=== PATIENT | female | born 1965 | race Caucasian/White ===

== ENCOUNTER → 2018-08-18 | Outpatient (CLI) | payer OTHER ==
--- NOTE | 2018-08-18 13:18 | RADIOLOGY REPORT (SQ) ---
EXAM DESCRIPTION: CHEST PA/LATERAL COMPLETED DATE/TIME: 08/18/2018 12:04 pm REASON FOR STUDY: ACUTE BRONCHITIS DUE TO OTHER SPECIFIED ORGANISMS COMPARISON: None. EXAM PARAMETERS: NUMBER OF VIEWS: two views TECHNIQUE: Digital Frontal and Lateral radiographic views of the chest acquired. RADIATION DOSE: NA LIMITATIONS: none FINDINGS: LUNGS AND PLEURA: Nodular density overlying right 6th posterior rib. Similar nodular dens ity more inferiorly is probably a nipple shadow. Left apical bronchiectasis and pleural thickening. MEDIASTINUM AND HILAR STRUCTURES: No masses or contour abnormalities. HEART AND VASCULAR STRUCTURES: Heart normal size. No evidence for failure. BONES: No acute findings. HARDWARE: Left axillary clips. OTHER: No other significant finding. IMPRESSION: Left apical bronchiectasis and equivocal right lung nodule. Consider follow-up noncontr ast chest CT. TECHNICAL DOCUMENTATION: JOB ID: [id number] [employer]- All Rights Reserved Reading location - IP/workstation name: [email or web address]
== END ==
LOC: OD 11:54
PROVIDERS: ATTEND Nurse Practitioner Family
DX: J20.8 Acute bronchitis due to other specified organisms (principal)
CPT/HCPCS: 71046

== ENCOUNTER → 2018-09-07 | Outpatient (CLI) | payer OTHER ==
--- NOTE | 2018-09-07 15:31 | RADIOLOGY REPORT (SQ) ---
EXAM DESCRIPTION: CT CHEST WITHOUT COMPLETED DATE/TIME: 09/07/2018 3:14 pm REASON FOR STUDY: R91.1 SOLITARY PULMONARY NODULE R91.1 SOLITARY PULMONARY NODULE COMPARISON: None. TECHNIQUE: CT scan performed of the chest without intravenous contrast. Images reviewed with lung, soft tissue and bone windows. Reconstructed coronal and sagittal MPR images reviewed. All images st ored on PACS. All CT scanners at this facility use dose modulation, iterative reconstruction, and/or weight based d osing when appropriate to reduce radiation dose to as low as reasonably achievable (ALARA). [facility]: Dose Right [facility]: CareDose [facility]: Dose Right [facility]: Teradose 4D [facility]: Smart [employer] Math RADIATION DOSE: CT Rad equipment meets quality standard of care and radiation dose reduction techniq ues were employed. CTDIvol: 3.5 mGy. DLP: 133 mGy-cm. mGy. LIMITATIONS: No technical limitations. FINDINGS: LUNGS AND PLEURA: Segmental bronchiectasis in the left apex, presumably from prior radiati on. No pulmonary nodule is identified. No effusions. HILAR AND MEDIASTINAL STRUCTURES: No adenopathy. HEART AND VASCULAR STRUCTURES: No aneurysm. No pericardial effusion. UPPER ABDOMEN: No significant findings. Limited exam. THYROID AND OTHER SOFT TISSUES: Left breast implant. BONES: No acute findings. HARDWARE: None in the chest. OTHER: No other significant findings. IMPRESSION: Left apical bronchiectasis. No evidence of pulmonary nodule. TECHNICAL DOCUMENTATION: JOB ID: [id number] Quality ID # [id number]: Final reports with documentation of one or more dose reduction techniques (e.g., Au tomated exposure control, adjustment of the mA and/or kV according to patient size, use of iterative reconstruction technique) 2010 [employer]- All Rights Reserved Reading location - IP/workstation name: [email or web address]
== END ==
LOC: RAD 17:10
PROVIDERS: ATTEND Family Medicine Geriatric Medicine
DX: J47.9 Bronchiectasis, uncomplicated (principal); R91.1 Solitary pulmonary nodule
CPT/HCPCS: 71250

== ENCOUNTER 2018-10-11 18:38 | Emergency (ER) | payer OTHER ==
[2018-10-11] MEDS ORDERED: LIDOCAINE 1%/EPINEPHRINE INJ 20 ML VIAL INJ ONE (20:14)
[2018-10-11] MEDS ORDERED: LIDOCAINE 1% INJ-PF (10 MG/ML) 30 ML SDV INJ ONE (20:15)
[2018-10-11] MEDS ORDERED: DIPH/PERTUSS(ACELL)/TETANUS VAC/PF 0.5 ML SYR (>=10YO) IM ONE (20:19)
--- NOTE | 2018-10-11 20:20 | ER Document Report ---
ED Fall - General Chief Complaint: Fall Injury Stated Complaint: FALL/FACE INJURY Time Seen by Provider: 10/11/18 20:02 Notes: Patient is a 53 year old female that comes to the emergency department for chief complaint of fall, she states she fell from standing by stepping on uneven pavement and falling forward, she hit her face on the ground, she had swelling to the face on the right side, swelling to the nose, bleeding from the nose, and bleeding from her top lip. She denies being knocked out, vomiting, she is not on a blood thinner. She also scraped her knees, however she denies any pain, she denies difficulty walking, visual changes, focal numbness or weakness. She is not up-to-date on her tetanus within 5 years. TRAVEL OUTSIDE OF THE [place] IN LAST 30 DAYS: No - Related data Allergies/Adverse Reactions: Penicillins Allergy (Verified 10/11/18 18:42) Past Medical History - General Information source: Patient - Social History Smoking Status: Never Smoker Frequency of alcohol use: None Drug Abuse: None Lives with: Family Family History: Reviewed & Not Pertinent Patient has suicidal ideation: No Patient has homicidal ideation: No Renal/ Medical History: Denies: Hx Peritoneal Dialysis - Immunizations Immunizations up to date: No Hx Diphtheria, Pertussis, Tetanus Vaccination: Yes Review of Systems - Review of Systems Constitutional: No symptoms reported EENT: See HPI Cardiovascular: No symptoms reported Respiratory: No symptoms reported Gastrointestinal: No symptoms reported Genitourinary: No symptoms reported Female Genitourinary: No symptoms reported Musculoskeletal: See HPI Skin: See HPI Hematologic/Lymphatic: No symptoms reported Neurological/Psychological: No symptoms reported Physical Exam - Vital signs Vitals: Temp Pulse Resp BP Pulse Ox 97.8 F 97 16 121/82 95 10/11/18 19:06 10/11/18 19:06 10/11/18 19:06 10/11/18 19:06 10/11/18 19:06 - Notes Notes: GENERAL: Alert, interacts well. No acute distress. HEAD: Normocephalic. Ecchymosis over the right zygomatic area, over the nasal bridge with some swelling, there is an open laceration over the middle upper nasal bridge, there is a laceration over the upper lip and a skin avulsion over the left upper lip. EYES: Pupils equal, round, and reactive to light. Extraocular movements intact. ENT: Oral mucosa moist, tongue midline. Oropharynx unremarkable. Airway patent. Dried epistaxis in both nares, no septal hematoma, no current epistaxis. TM's intact. Inner upper lip with a laceration that extends through to the skin avulsion on the left side. No dental injuries noted, no oral injuries noted otherwise. NECK: Full range of motion. Supple. Trachea midline. LUNGS: Clear to auscultation bilaterally, no wheezes, rales, or rhonchi. No respiratory distress. HEART: Regular rate and rhythm. No murmur ABDOMEN: Soft, non-tender. Non-distended. Bowel sounds present in all 4 quadrants. GENITOURINARY: Deferred EXTREMITIES: Moves all 4 extremities spontaneously. No edema, normal radial and dorsalis pedis pulses bilaterally. No cyanosis. BACK: no cervical, thoracic, lumbar midline tenderness. No saddle anesthesia, normal distal neurovascular exam. NEUROLOGICAL: Alert and oriented x3. Normal speech. [cranial nerves II through XII grossly intact]. PSYCH: Normal affect, normal mood. SKIN: Warm, dry, normal turgor. No rashes or lesions noted. Course - Re-evaluation Re-evalutation: Initially CT criteria was discussed, however because of patient's obvious facial swelling, nasal swelling, nasal bleeding, and a fall from standing with a strike on the pavement decision was made to proceed with imaging. She is not on blood thinner, she does not have vomiting, nausea, severe headache, she did not pass out. CT showing nasal bone fractures, septal fracture. Patient does not have septal hematoma on exam. Laceration over the nasal bridge repaired, laceration over the right upper lip repaired, skin avulsion noted over the left upper lip, when looking underneath there is a hole which was sutured in the upper lip which did communicate with the left upper lip skin avulsion. Patient is allergic to penicillins, as a result she was placed on doxycycline for prophylaxis due to mouth wound/bite. I called and spoke with oral maxillofacial surgeon Dr. Riki Adkins, discussed injuries, he recommends follow-up with ENT because of septal fracture. Discussed with patient. Patient also will be referred to Dr. Bates because of the left upper lip injury for possible plastics involvement. Discussed prophylaxis with antibiotics, patient was given her tetanus, discussed head injury precautions, wound care, postconcussive syndrome , and return precautions in detail with patient and . Discussed with Dr. Villarreal. They state understanding and agreement. - Vital Signs Vital signs: Temp Pulse Resp BP Pulse Ox 97.8 F 97 16 121/82 95 10/11/18 19:06 10/11/18 19:06 10/11/18 19:06 10/11/18 19:06 10/11/18 19:06 Procedures - Laceration/Wound Repair nose Wound length (cm): 1.5 Wound's Depth, Shape: Irregular Laceration pre-procedure: Sterile PPE donned, Sterile drapes applied, Shur- Clens applied Anesthetic type: 1% Lidocaine Volume Anesthetic (mLs): 2 Wound explored: Clean, No foreign body removed Wound Repaired With: Sutures Suture Size/Type: 6:0, Nylon Layer Closure?: No Post-procedure NV exam normal: Yes Complications: No right upper lip Wound length (cm): 1 Wound's Depth, Shape: Irregular, Flap Laceration pre-procedure: Sterile PPE donned, Sterile drapes applied, Shur- Clens applied Anesthetic type: 1% Lidocaine Volume Anesthetic (mLs): 2 Wound explored: Clean, No foreign body removed Irrigated w/ Saline (mLs): 40 Wound Repaired With: Sutures Suture Size/Type: 6:0, Nylon Number of Sutures: 4 Layer Closure?: No Post-procedure NV exam normal: Yes Complications: No upper inner lip Wound length (cm): 0.5 Wound's Depth, Shape: Linear Laceration pre-procedure: Sterile PPE donned, Sterile drapes applied, Shur- Clens applied Anesthetic type: 1% Lidocaine Volume Anesthetic (mLs): 1 Wound explored: Clean, No foreign body removed Wound Repaired With: Sutures Suture Size/Type: 5:0, Vicryl Post-procedure NV exam normal: Yes Complications: No Discharge - Discharge Clinical Impression: Fall Qualifiers: Encounter type: initial encounter Qualified Code(s): W19.XXXA - Unspecified fall, initial encounter Facial laceration Qualifiers: Encounter type: initial encounter Qualified Code(s): S01.81XA - Laceration without foreign body of other part of head, initial encounter Facial contusion Qualifiers: Encounter type: initial encounter Qualified Code(s): S00.83XA - Contusion of other part of head, initial encounter Nasal bone fracture Qualifiers: Encounter type: initial encounter Fracture type: open Qualified Code(s): S02.2XXB - Fracture of nasal bones, initial encounter for open fracture Nasal septum fracture Qualifiers: Encounter type: initial encounter Fracture type: open Qualified Code(s): S02.2XXB - Fracture of nasal bones, initial encounter for open fracture Additional Instructions: Your imaging shows fracture of the nasal bone and nasal septum. Do not blow your nose. Follow-up with the ENT referral Dr. Amador for management, call tomorrow to make your follow-up appointment. Take Tylenol or ibuprofen for pain. The sutures can be removed in 5-7 days. Keep clean, clean with soap and water, dab dry, avoid soaking. Because of the avulsed area over the left upper lip and the questionable damaged tissue over the right upper lip I recommend evaluation by plastics, call Dr. Bates for close follow-up as listed. You may experience postconcussive headaches. Please follow head injury precautions listed below. Return for any concerning symptoms. Fracture of the Nose You have a fractured nose. The examination shows no evidence that the nose needs to be "set" or operated on. However, the physician must recheck the nose once the swelling has decreased. The final decision about straightening of the bones or surgery can be made once the swelling resolves. This usually takes three to five days. Rest in a reclining chair. Cold pack the nose for the next 24 to 36 hours. Do not blow the nose. This may increase the swelling or cause further bleeding. If you have painful swelling inside the nose or exquisite tenderness when the tip of the nose is touched, you should call the doctor at once or return for re-evaluation. You should also contact the doctor if you develop fever, purulent nasal drainage, increasing pain in the face, or problems with vision. Post-Concussion Syndrome Post-concussion syndrome often follows a mild head injury. Dizziness, mild nausea, mild headache, trouble concentrating, and a general sense of "not being right" may persist for a week or two. This is a frequent complication of concussion. However, if the symptoms worsen, or new symptoms develop, you should be re-examined by the physician. There is no specific cure for post-concussion syndrome. You can take mild pain medication such as ibuprofen or acetaminophen. While you should not drive if you are dizzy, you can get back to your regular activities as quickly as the symptoms will allow. And while vigorous exercise may worsen the headache, mild physical activity often is helpful. Sitting and thinking about your symptoms will worsen them. If difficulties continue, you may need referral for special therapy to help you regain full mental function. Call the physician if you are worsening, or if symptoms are still present in one week. Report any new symptoms immediately. Head Injury Precautions At this point, there is no evidence that your head injury is serious. Observation is necessary, however. Take only clear liquids for the first few hours, unless told otherwise by the doctor. If no pain medication was prescribed, you may take acetaminophen according to the directions on the bottle. Do not take any medication that may alter your level of alertness (unless you've discussed it with the doctor first) . Limit activity for the first 24 hours. Bed rest is best. During the first 24 hours, check to see approximately every two to three hours that the patient is easily arousable, responds normally, and can perform common tasks such as walking without difficulty. Contact your doctor or go to the hospital if any of the following things occur: Persistent vomiting, difficulty in arousing the patient, worsening or continued headache, or failure to improve as expected. Head injuries can cause symptoms that persist for a few days or even a few weeks. Prescriptions: Doxycycline Hyclate 100 mg PO BID #10 capsule Referrals: VANITA AMADOR DO [ASSOCIATE] - Follow up tomorrow JAZZ BATES MD [ACTIVE STAFF] - Follow up tomorrow
--- NOTE | 2018-10-11 22:07 | RADIOLOGY REPORT (SQ) ---
EXAM DESCRIPTION: CT HEAD WITHOUT IV CONTRAST COMPLETED DATE/TME: 10/11/2018 20:12 CLINICAL HISTORY: 53 years Female fall, facial injury, facial swelling COMPARISON: None. TECHNIQUE: Contiguous axial CT images obtained through the brain without IV contrast. This exam was performed according to our department optimization program which includes automated exposure control, adjustment of the mA and/or kv according to patient size and/or use of iterative reconstruction technique. FINDINGS: The ventricles and sulci are within normal limits for the patient's age. No midline shift or mass effect. No masses identified. No acute intracranial hemorrhage. No fluid or significant mucosal thickening in the visualized paranasal sinuses. No depressed calvarial fractures. Fracture of the nasal bones and nasal septum. IMPRESSION: Acute fracture of the nasal bones and nasal septum No acute intracranial abnormality is identified.
--- NOTE | 2018-10-11 22:09 | RADIOLOGY REPORT (SQ) ---
EXAM DESCRIPTION: CT MAXILLOFACIAL WITHOUT IV CONTRAST COMPLETED DATE/TME: 10/11/2018 20:12 CLINICAL HISTORY: 53 years Female fall, facial injury, facial swelling COMPARISON: None. TECHNIQUE: Contiguous axial images obtained through the maxillofacial region without IV contrast. Reformatted images obtained. This exam was performed according to our department optimization program which includes automated exposure control, adjustment of the mA and/or kv according to patient size and/or use of iterative reconstruction technique. FINDINGS: The post septal orbits appear unremarkable. No fluid or significant mucosal thickening in the visualized paranasal sinuses. Comminuted fracture of the nasal bones with associated soft tissue swelling and subcutaneous emphysema. Fracture of the nasal septum. Orbits appear intact. IMPRESSION: Fracture of the nasal bones and nasal septum
[2018-10-11] MEDS ORDERED: DOXYCYCLINE HYCLATE 100 MG TABLET PO ONE (22:32)
[2018-10-12 02:35] VITALS: BP 118/74
== END 2018-10-11 22:55 | disposition home or self-care (01) ==
LOC: ER 18:38
DX: S02.2XXB Fracture of nasal bones, initial encounter for open fracture (principal); W18.39XA Other fall on same level, initial encounter; Z88.0 Allergy status to penicillin; Z23 Encounter for immunization
CPT/HCPCS: 99284; 90471; 70450; 70486; 90715; 12013; J3490

== ENCOUNTER 2020-09-28 07:49 | Day surgery (SDC) | payer OTHER ==
[~2020-09-28 07:49] MED LIST: PROPOFOL INJ 200 MG/20 ML VIAL IV ONE
[2020-09-28 09:42] VITALS: BP 129/72
--- NOTE | 2020-09-28 09:51 | Operative Report ---
Operative Report DATE OF SURGERY: 09/28/20 Operative Report: The risk, benefits and alternatives of the procedure including the risk of bleeding, perforation requiring surgery have been explained to the patient in detail and informed consent has been obtained. Patient is taken back to the endoscopy suite and placed in left, lateral decubital position. Timeout was called. Propofol medication is administered. Rectal examination is done which did not reveal any masses, tears or fissures. An Olympus videoscope was inserted into the patient's rectum. Scope was then carefully advanced all the way to the cecum. Cecum was identified by the usual anatomical landmarks including the ileocecal valve as well as the appendiceal office. Photodocumentation is obtained. Scope was then sequentially pulled back via the various segments of the colon including the ascending colon, hepatic flexure, transverse colon, splenic flexure, descending colon and finally into the rectosigmoid portions of the colon. Retroflexion maneuvers performed. Prep was good. PREOPERATIVE DIAGNOSIS: Positive Cologuard POSTOPERATIVE DIAGNOSIS: Small sessile rectal polyp status post biopsy. Internal hemorrhoids OPERATION: Colonoscopy with biopsy SURGEON: MICHAEL BERNARD ANESTHESIA: LMAC TISSUE REMOVED OR ALTERED: As noted above. COMPLICATIONS: None. ESTIMATED BLOOD LOSS: None. INTRAOPERATIVE FINDINGS: As noted above. PROCEDURE: Patient tolerated the procedure well. No immediate postprocedure complications are noted. Patient is discharged in good condition. Discharge date 09/28/2020. Discharge diet: Regular. Discharge activity: Regular. 2 to 3-week follow-up to discuss findings. Patient is instructed to call the office or proceed to the emergency room should there be any further problems or questions. 3 to 5-year surveillance depending on the pathology of the polyp
--- OUTSIDE RECORDS SUMMARY | 2020-10-01 08:55 | XMS REPORT ---
:1965 Author Organization [facility] Address [facility] [address] [place] [address] Care Team Providers Name Role Phone STEFANY Tyler Primary Care Physician Unavailable Jayson BRITT Attending Clinician Unavailable MD Jayson A Attending Clinician Unavailable Allergies, Adverse Reactions, Alerts Allergy Name Allergy Status Severity Reaction(s) Onset Inactive Treat ing Comments Type Date Date Clinician PENICILLINS Miscellaneo Active U hives 2017- us allergy 0-03 00:00: 00 Penicillins Allergy to Active substance penicillins Drug Active allergy Penicillins Penicillins Active Medications Ordered Filled Start Stop Current Ordering Indication Dosage Frequency Signature Comments Components Medication Medication Date Date Medication? Clinician (SIG) Name Name Colace 100 2019-0 Yes 100mg 100 mg = 1 mg oral 8-12 cap(s), capsule 14:36: PO, BID, 00 for constipati on, # 10 cap(s), 0 Refill(s), Pharmacy: [facility]. #5, 159, cm, 06/27/20 12:01:00 EDT, Height, 66.9, kg, 06/27/20 12:01:00 EDT, Weight [place] 5 2019-0 Yes 11 1 tab(s), mg-325 mg 8-12 PO, q4hr, oral tablet 14:36: for pain, 00 # 10 tab(s), 0 Refill(s), Pharmacy: [facility]. #5, 159, cm, 06/27/20 12:01:00 EDT, Height, 66.9, kg, 06/27/20 12:01:00 EDT, Weight [place] 2019-0 Yes 11 1 tab(s), 8-12 PO, Daily 11:02: 00 tamoxifen 2020-0 Yes 20mg 20 mg = 1 20 mg oral 8-12 tab(s), tablet 11:02: PO, Daily 00 atorvastati Yes 10mg 10 mg = 1 n 10 mg 8-12 tab(s), oral tablet 11:02: PO, Daily 00 aspirin 81 2019-0 Yes 81mg 81 mg = 1 mg oral 8-12 tab(s), delayed 11:02: PO, Daily release 00 tablet oxyCODONE-A No oxyCODONE- cetaminophe 7-27 Acetaminop n 5-325 MG 00:00: hen 5-325 Oral Tablet 00 MG Oral Tablet Quantity: 20 Refills: 0 Start : 0Active Tamsulosin No Tamsulosin HCl - 0.4 7-27 HCl - 0.4 MG Oral 00:00: MG Oral Capsule 00 Capsule Quantity: 7 Refills: 0 Start : 0Active Ondansetron No Ondansetro 4 MG Oral 06-11 n 4 MG Tablet 00:00: Oral Disintegrat 00 Tablet ing Disintegra ting Quantity: 15 Refills: 0 Start : 0Active Atorvastati Yes 0 Atorvastat n Calcium 4-29 in Calcium 10 MG Oral 00:00: 10 MG Oral Tablet 00 Tablet Quantity: 30 Refills: 0 ,,, Start : 0Active Tamoxifen 0 Yes 0 Tamoxifen Citrate 20 1-31 Citrate 20 MG Oral 00:00: MG Oral Tablet 00 Tablet Quantity: 30 Refills: 0 ,,, Start : 0Active Alive Yes 0 Alive Womens 50+ Womens 50+ Oral Tablet Oral Tablet Refills: 0 ,,, Active traZODone Yes 0 traZODone HCl - 50 MG HCl - 50 Oral Tablet MG Oral Tablet Refills: 0 ,,, Active azithromyci No azithromyc n 250 mg in 250 mg tablet tablet benzonatate No benzonatat 200 mg e 200 mg capsule capsule Celexa 20 No 1 Q1D Celexa 20 mg tablet mg tablet Take 1 Take 1 tablet tablet every day every day by oral by oral route. route. cephalexin No cephalexin 500 mg 500 mg capsule capsule Take 1 Take 1 capsule capsule every 12 every 12 hours by hours by oral route. oral route. diphenoxyla No diphenoxyl te-atropine ate-atropi 2.5 ne 2.5 mg-0.025 mg mg-0.025 tablet mg tablet Flucelvax No Flucelvax Quad Quad 60 mcg (15 60 mcg (15 mcg x mcg x 4)/0.5 mL 4)/0.5 mL IM IM suspension suspension ondansetron No ondansetro HCl 8 mg n HCl 8 mg tablet tablet polymyxin B No polymyxin sulfate B sulfate 10,000 10,000 unit-trimet unit-trime hoprim oprim 1 mg/mL eye mg/mL eye drops drops prednisone No prednisone 10 mg 10 mg tablet tablet prednisone No prednisone 20 mg 20 mg tablet tablet ProAir HFA No ProAir HFA 90 90 mcg/actuati mcg/actuat on aerosol ion inhaler aerosol inhaler promethazin No promethazi e 25 mg ne 25 mg rectal rectal suppository suppositor y tamoxifen No tamoxifen 20 mg 20 mg tablet tablet trazodone No trazodone 50 mg 50 mg tablet tablet Problems Condition Condition Condition Status Onset Resolution Last Treatin g Comments Name Details Category Date Date Treatment Clinician Date Personal Personal Problem Active history of History of 06-18 primary Primary 00:00: malignant Malignant 00 neoplasm of Neoplasm of breast Breast Estrogen Estrogen Problem Active receptor Receptor 8-03 positive Positive 00:00: tumor Tumor 00 Calculus of Calculus of Problem Active kidney kidney Complaint Complaint Problem Active of flank of flank pain pain Procedures Procedure Date / Time Performed Performing Clinician Armen ricci Basic Metabolic Panel(BMP) 2020-09-27 00:00:00 CBC 2020-09-27 00:00:00 L - MRSA Screening Culture 2020-09-27 00:00:00 PT/INR and PTT 2020-09-27 00:00:00 XR- KUB 1 View/ Abdomen 2020-09-27 00:00:00 US-Renal ULS Complete w/ Bladder 2020-09-18 00:00:00 Urinalysis 2020-09-17 00:00:00 US-Renal ULS Complete w/ Bladder 2020-07-06 00:00:00 Urinalysis 2020-07-03 00:00:00 XR- KUB 1 View/ Abdomen 2020-06-15 00:00:00 Basic Metabolic Panel(BMP) 2020-06-13 00:00:00 CBC 2020-06-13 00:00:00 L - MRSA Screening Culture 2020-06-13 00:00:00 Urine Culture 2020-06-13 00:00:00 Urinalysis 2020-06-13 00:00:00 Mastectomy with [place] Lymph Node 2017-11-24 00:00:00 Biopsy and Possible Axillary Dissection (Surg) History of Mastectomy Results Test Description Test Time Test Comments Text Results Atomic Results Result Comments Basic Metabolic Panel(BMP) 2020-09-27 09:06:00 Test Item Value Reference Range Comments Glucose (test code = Glucose) 90 mg/dL 74-106 Sodium (test code = Sodium) 143 mmol/L 135-145 Potassium (test code = Potassium) 4.2 mmol/L 3.5-5.3 Chloride (test code = Chloride) 109 mmol/L 98-107 CO2 (test code = CO2) 28 mmol/L 22-30 Creatinine, serum (test code = Creatinine, serum) 0.70 mg/dL 0.10-1.04 Glomerular Filtration Rate (test code = Glomerular Filtration >6 0 >60 Rate) Glomerular Filtration Rate AA (test code = Glomerular >60 >60 Filtration Rate AA) Blood Urea Nitrogen (test code = Blood Urea Nitrogen) 15 mg/dL 7-17 Calcium (test code = Calcium) 9.2 mg/dL 8.4-10.5 [id number] 09:05:00 Test Item Value Reference Range Comments White Blood Cell (test code = White Blood Cell) 4.7 K/uL 3.5-11.1 Red Blood Cell (test code = Red Blood Cell) 3.79 {M/uL} 3.69 -4.87 Hemoglobin (test code = Hemoglobin) 12.3 g/dL 11.4-14.4 Hematocrit (test code = Hematocrit) 35 % 33-41 Mean Corpuscular Volume (test code = Mean 92.6 fL 79.0-9 5.0 Corpuscular Volume) Mean Corpuscular Hemoglobin (test code = Mean 32.5 pg/mL 27 .0-33.0 Corpuscular Hemoglobin) Mean Corpuscular Hemoglobin Concentration (test 35.0 g/dL 33.5-35.5 code = Mean Corpuscular Hemoglobin Concentration) Red Cell Distribution Width (test code = Red 11.5 % 12. 0-15.0 Cell Distribution Width) Platelet (test code = Platelet) 208 K/uL 130-353 Mean Platelet Volume (test code = Mean Platelet 10.3 fL 7.5-10.7 Volume) Neutrophil Count, absolute (test code = 2.9 K/uL 1.9-7.2 Neutrophil Count, absolute) Neutrophil Count Percentage (test code = 62.5 % 43.0-72 .0 Neutrophil Count Percentage) Lymphocyte Count, absolute (test code = 1.2 K/uL 1.1-2.7 Lymphocyte Count, absolute) Lymphocyte Count Percentage (test code = 26.4 % 17.0-44 .0 Lymphocyte Count Percentage) Monocyte Count, absolute (test code = Monocyte 0.4 K/uL 0 .3-0.8 Count, absolute) Monocyte Count Percentage (test code = Monocyte 9.4 % 4.5-12.4 Count Percentage) Eosinophil Count, absolute (test code = 0.1 K/uL 0.0-0.5 Eosinophil Count, absolute) Eosinophil Count Percentage (test code = 1.5 % 0.7-7.8 Eosinophil Count Percentage) Basophil Count, absolute (test code = Basophil 0.0 K/uL 0 .0-0.1 Count, absolute) Basophil Count Percentage (test code = Basophil 0.2 % 0.2-1.1 Count Percentage) PT/INR and [id number] 09:05:00 Test Item Value Reference Range Comments Prothrombin Time (test code = Prothrombin 10.40 {seconds} 9.44-1 1.43 Time) Activated Partial Thromboplastin Time (test 23.70 {seconds} 24.5 0-29.98 code = Activated Partial Thromboplastin Time) INR (test code = INR) 1.1 [facility] 2019 CORONAVIRUS LUCY PANEL\S\2020-09-25 08:52:00 Test Item Value Reference Range Comments [facility] CORONAVIRUS 2019 LUCY SOURC (test code = See comment SOURCE3) [facility] 2019 NOVEL CORONAVIRUS LUCY (test code = Not Detected Not Detect [id number]) [id number] 08:07:00 Test Item Value Reference Range Comments Urine Color (test code = Urine Color) LT. YELLOW Yellow Urine Clarity (test code = Urine Clarity) CLEAR Clear Urine Glucose (test code = Urine Glucose) NEGATIVE Negati ve Urine Ketones (test code = Urine Ketones) NEGATIVE Negati ve Urine Bilirubin (test code = Urine Bilirubin) NEGATIVE Ne gative Urine Specific [place] (test code = Urine 1.025 1.010- 1.030 Specific [place]) Urine Blood (test code = Urine Blood) NEGATIVE Negative Urine pH (test code = Urine pH) 6.5 5.0-8.0 Urine Protein (test code = Urine Protein) NEGATIVE Negati ve Urine Urobilinogen (test code = Urine 0.2 Eu/dl 0.2 Urobilinogen) Urine Nitrites (test code = Urine Nitrites) NEGATIVE Nega tive Urine Leukocytes (test code = Urine Leukocytes) SMALL Negative URINE MICROSCOPIC= 0-2 EPIS, 3-5 WBC, OCC BACTERIA. [id number]- [id number] 1 View/ Abdomen 2020-09-10 12:51:00An image is avaliable in [employer], click link to view image [id number] 08:09:00 Test Item Value Reference Range Comments Urine Color (test code = Urine Color) LT. YELLOW Yellow Urine Clarity (test code = Urine Clarity) CLEAR Clear Urine Glucose (test code = Urine Glucose) NEGATIVE Negati ve Urine Ketones (test code = Urine Ketones) NEGATIVE Negati ve Urine Bilirubin (test code = Urine NEGATIVE Negative Bilirubin) Urine Specific [place] (test code = Urine 1.024 1.010- 1.030 Refractometer Specific [place]) Urine Blood (test code = Urine Blood) LARGE Negative Urine pH (test code = Urine pH) 5.0 5.0-8.0 Urine Protein (test code = Urine Protein) 100 mg/dL Negati ve Urine Urobilinogen (test code = Urine 0.2 Eu/dl 0.2 Urobilinogen) Urine Nitrites (test code = Urine Nitrites) NEGATIVE Nega tive Urine Leukocytes (test code = Urine SMALL Negative Leukocytes) microscopic: 21-50rbc, 6-10wbc, few bact, 1+amorphous, [id number] 12:31:00 Test Item Value Reference Range Comments MRSA-PCR (test code = NEGATIVE Result Com ment: MRSA SCREEN- MRSA MRSA-PCR) SCREEN-A positiv e test result does not necessa rily indicate the presence of viab le organisms but is presumptive f or MRSA. MRSA SCREEN-Results s hould be used to identify patient s needing enhanced precaut ions and should not be used to g uide or monitor treatment for MR SA infections. [id number] 13:05:00 Test Item Value Reference Range Comments Urine Color (test code = Yellow Yellow Urine Color) Urine Clarity (test code = Clear Clear Urine Clarity) Urine Glucose (test code = Negative Negative Urine Glucose) Urine Ketones (test code = 15 mg/dL Negative Urine Ketones) Urine Bilirubin (test code = Small Negative Margot ble to perform Ictotest due Urine Bilirubin) to reagent unav ailable from job hand. Urine Specific [place] (test 1.024 1.010-1.030 Ref ractometer code = Urine Specific [place]) Urine Blood (test code = Large Negative Urine Blood) Urine pH (test code = Urine 5.0 5.0-8.0 pH) Urine Protein (test code = Trace Negative Urine Protein) Urine Urobilinogen (test code 0.2 Eu/dl 0.2 = Urine Urobilinogen) Urine Nitrites (test code = Negative Negative Urine Nitrites) Urine Leukocytes (test code = Small Negative Urine Leukocytes) microscopic: 21-50rbc, 11-20wbc, 3-5epis, mod bact, 2+amorphousUrine Culture 2020-06-13 10:18:00 Test Item Value Reference Range Comments 48 Hour Report (test Microbiology results [place] Count[06/15/2020 code = 48 Hour Report) 9:43 AM M GL] NO GROWTHResult[05/18 9:43 AM MGL] At 48 hours (No Growth) Basic Metabolic Panel(BMP)2020-06-13 09:46:00 Test Item Value Reference Range Comments Glucose (test code = Glucose) 99 mg/dL 74-106 Sodium (test code = Sodium) 140 mmol/L 135-145 Potassium (test code = Potassium) 4.3 mmol/L 3.5-5.3 Chloride (test code = Chloride) 101 mmol/L 98-107 CO2 (test code = CO2) 31 mmol/L 22-30 Creatinine, serum (test code = Creatinine, serum) 0.90 mg/dL 0.10-1.04 Glomerular Filtration Rate (test code = >60 >60 Glomerular Filtration Rate) Glomerular Filtration Rate AA (test code = >60 >60 Glomerular Filtration Rate AA) Blood Urea Nitrogen (test code = Blood Urea 21 mg/dL 7-17 Nitrogen) Calcium (test code = Calcium) 9.9 mg/dL 8.4-10.5 [id number] 09:45:00 Test Item Value Reference Range Comments White Blood Cell (test code = White Blood Cell) 6.4 K/uL 3.5-11.1 Red Blood Cell (test code = Red Blood Cell) 3.89 {M/uL} 3.69 -4.87 Hemoglobin (test code = Hemoglobin) 12.3 g/dL 11.4-14.4 Hematocrit (test code = Hematocrit) 37 % 33-41 Mean Corpuscular Volume (test code = Mean 95.9 fL 79.0-9 5.0 Corpuscular Volume) Mean Corpuscular Hemoglobin (test code = Mean 31.6 pg/mL 27 .0-33.0 Corpuscular Hemoglobin) Mean Corpuscular Hemoglobin Concentration (test 33.0 g/dL 33.5-35.5 code = Mean Corpuscular Hemoglobin Concentration) Red Cell Distribution Width (test code = Red 11.3 % 12. 0-15.0 Cell Distribution Width) Platelet (test code = Platelet) 234 K/uL 130-353 Mean Platelet Volume (test code = Mean Platelet 11.0 fL 7.5-10.7 Volume) Neutrophil Count, absolute (test code = 4.5 K/uL 1.9-7.2 Neutrophil Count, absolute) Neutrophil Count Percentage (test code = 70.7 % 43.0-72 .0 Neutrophil Count Percentage) Lymphocyte Count, absolute (test code = 1.2 K/uL 1.1-2.7 Lymphocyte Count, absolute) Lymphocyte Count Percentage (test code = 17.9 % 17.0-44 .0 Lymphocyte Count Percentage) Monocyte Count, absolute (test code = Monocyte 0.6 K/uL 0 .3-0.8 Count, absolute) Monocyte Count Percentage (test code = Monocyte 9.5 % 4.5-12.4 Count Percentage) Eosinophil Count, absolute (test code = 0.1 K/uL 0.0-0.5 Eosinophil Count, absolute) Eosinophil Count Percentage (test code = 0.9 % 0.7-7.8 Eosinophil Count Percentage) Basophil Count, absolute (test code = Basophil 0.0 K/uL 0 .0-0.1 Count, absolute) Basophil Count Percentage (test code = Basophil 0.5 % 0.2-1.1 Count Percentage) Nucleated Red Blood Cell, absolute (test code = 0.00 K/uL 0.00-0.00 Nucleated Red Blood Cell, absolute) Nucleated Red Blood Cell, percentage (test code 0.00 % 0.00-0.00 = Nucleated Red Blood Cell, percentage) MRSA Screening [id number] 09:45:00 Test Item Value Reference Range Comments MRSA Screening Culture (test code = 15936-1) Negative [facility] performed at: [BN] [facility], [address], , Nut Picker: Alea Freeman MD Assessments Condition Name Status Diagnosis Date Treating Clinici an Calculus of kidney Active 0 Encounter for screening for other viral Active 0 diseases Post-mastectomy pain Active 2019-08-02 12:18:13 History of malignant neoplasm of breast Active 12:18:13 Long-term drug therapy Active 2019-08-02 12:18:13 Lymphedema Active 2019-08-02 12:18:13 Post-mastectomy pain Active 2018-12-29 10:08:53 History of malignant neoplasm of breast Active 10:08:53 Long-term drug therapy Active 2018-12-29 10:08:53 Lymphedema Active 2018-12-29 10:09:34 Encounters Start End Encounter Admission Attending Care Care Encounter Date/Time Date/Time Type Type Clinicians Facility Department ID 2020-09-27 2020-09-27 [facility] [id number] 08:55:00 08:55:00 t; [facility], Lab WB 2020-09-18 2020-09-18 JUAN CARLOS Patton [facility] [id number] 11:00:00 11:00:00 t; Rao Tyler MD 2020-09-10 2020-09-10 [facility] [id number] 12:35:00 12:35:00 t; [facility], X-Ray 2020-07-06 2020-07-06 ALEJANDRINA PattonJANNA [facility] [id number] 13:15:00 13:15:00 t; Rao Tyler MD 2020-06-27 2020-06-27 O Rao Hernandez [facility] 20 [id number] 10:41:32 15:30:00 Rao Tyler 2020-06-23 2020-06-23 O Rao Hernandez [facility] 20 [id number] 09:00:00 23:59:59 Rao Tyler 2020-06-13 2020[facility] [id number] 09:15:00 09:15:00 t; Rao Tyler MD 2019-08-01 2019-08-01 [facility] [id number] 00:00:00 00:00:00 [facility] [id number] Kelsie, RN [facility] [address] [address] , Ph. 2018-12-29 2018-12-29 [facility] 20 [id number] 00:00:00 00:00:00 [facility] [id number] Kelsie, RN [facility] [address] [address] , Ph. Family History Family Member Diagnosis Comments Start Date Stop Date Unspecified Family history of depression Other Mother Family history of hypercholesterolemia Mother Family history of hypertension Father Family history of Hypothyroidism, acquired Father Family history of hypercholesterolemia Father Family history of arthritis Payers Payer Name Policy Type Policy Number Effective Date Expiration D ate Plan of Treatment Planned Activity Planned Date Details Comments Future Scheduled Test [code = ] Future Scheduled Test [code = ] Future Scheduled Test [code = ] Future Scheduled Test [code = ] Social History Smoking Status Start Date Stop Date Never smoked tobacco (finding) Social History Observation Description Sex Female Vital Signs Vital Name Observation Time Observation Value Comments BP Diastolic 2019-08-01 00:00:00 61 mm[Hg] Height 2019-08-01 00:00:00 64 [in_i] BMI (Body Mass Index) 2019-08-01 00:00:00 23.2 kg/m2 BP Systolic 2019-08-01 00:00:00 107 mm[Hg] Body Weight 2019-08-01 00:00:00 135 [lb_av] BP Diastolic 2018-12-29 00:00:00 65 mm[Hg] Height 2018-12-29 00:00:00 64 [in_i] BMI (Body Mass Index) 2018-12-29 00:00:00 23.2 kg/m2 BP Systolic 2018-12-29 00:00:00 100 mm[Hg] Body Weight 2018-12-29 00:00:00 135 [lb_av] Systolic blood pressure 2020-09-18 11:02:00 114 mm[Hg] Diastolic blood pressure 2020-09-18 11:02:00 69 mm[Hg] Weight 2020-09-18 11:02:00 148 [lb_av] Body mass index (BMI) [Ratio] 2020-09-18 11:02:00 26.22 kg/m2 Body height 2020-09-18 11:02:00 63 [in_us] Heart Rate 2020-09-18 11:02:00 90 /min Systolic blood pressure 2020-07-06 13:52:00 132 mm[Hg] Diastolic blood pressure 2020-07-06 13:52:00 68 mm[Hg] Heart Rate Monitored 2020-06-27 15:15:00 81 /min Respiratory Rate 2020-06-27 15:15:00 23 /min Systolic Blood Pressure 2020-06-27 15:15:00 123 mm[Hg] Diastolic Blood Pressure 2020-06-27 15:15:00 69 mm[Hg] Heart Rate Monitored 2020-06-27 15:10:00 77 /min Respiratory Rate 2020-06-27 15:10:00 20 /min Systolic Blood Pressure 2020-06-27 15:10:00 120 mm[Hg] Diastolic Blood Pressure 2020-06-27 15:10:00 65 mm[Hg] Diastolic Blood Pressure 2020-06-27 15:05:00 71 mm[Hg] Heart Rate Monitored 2020-06-27 15:05:00 75 /min Respiratory Rate 2020-06-27 15:05:00 13 /min Systolic Blood Pressure 2020-06-27 15:05:00 122 mm[Hg] Temperature - Temporal Artery 2020-06-27 14:35:00 36.3 Stacey Temperature - Temporal Artery 2020-06-27 11:57:00 36.2 Stacey Apical Heart Rate 2020-06-27 11:57:00 78 /min Systolic blood pressure 2020-06-13 09:20:00 122 mm[Hg] Diastolic blood pressure 2020-06-13 09:20:00 70 mm[Hg] Body height 2020-06-13 09:20:00 63 [in_us] Weight 2020-06-13 09:20:00 150 [lb_av] Body mass index (BMI) [Ratio] 2020-06-13 09:20:00 26.57 kg/m2 Hospital Discharge Instructions NameDatesDetailsInstructions not documentedNameDatesDetailsInstructions not documentedPatient Plpimavdg44/12/2020 14:55:14Outpatient Procedure Unit [id number] (CUSTOM)Outpatient Procedure UnitUrology - Discharge InstructionsDate: 06/27/2020Procedures: CYSTOSCOPY, LASER LITHOTRIPSYACTIVITIES(X ) You MUST have a responsible adult with you for the remainder of today and tonight for your protection and safety.(X ) You should rest theremainder of the day and have limited physical activity.(X ) For at least the next 24 hours or while taking pain medication, you should NOT:Drive a car or operate machinery or power tools.Drink anyalcoholic beverages (including beer).Make any important decisions such as signing important papers.DIET(X ) Advance diet slowly starting with clear liquids (tea, apple juice, jello), THEN RESUME NORMAL DIET IF NOT NAUSEOUSMEDICATIONS(X ) Prescriptions sent to: [facility] [place] 5/325mg(X ) Take prescribed pain medication. Follow label instructions.(X ) Take a non-prescription, non-aspirin pain medication. Follow label instructions.(X ) Resume your usual every day medication schedule with discharge.SPECIAL INSTRUCTIONS(X ) Call your doctor atthe office if you have:Fever (greater than 100 degrees oral or 101 rectal)Continued vomiting.Pain not relieved by prescribed medicationsAny unusual reactions to prescribed medications(X ) You need to drink 8 10 glasses of fluids a day (water, juices, lucero)(X )You may have some blood and clots in your urine for the next few days. Your urine should gradually clear. If the blood or clots donot clear, or get worse, contact your doctor.(X ) Do not remove catheter unless instructed to doso.(X ) If you have stents, there may be an obvious string from your uretha. Do not pull or tug on this string.(X ) If at any time you are unable to contact your doctor, call the [facility] at [phone].FOLLOW-UP CARE( ) Please call your doctor for an appointment.(X ) You should see on July 06 at 1:15 PM in [place].OTHER INSTRUCTIONS*Please do not lift greater than 10 pounds until cleared by Dr Tyler*Do not take any medications that will make you sleepy such as Benadryl, Melatonin, or prescribed medicaitons.*Shower only*Please call Dr Tyler's office or come to ER if you develop any nausea, vomiting, fever or shortness of breath 06/27/2020 14:35:04Jogracie Middleton Patient Safety: A Guide to Preventing Falls at Home (CUSTOM)[facility] Patient InformationPatient Safety: A Guide to Preventing Falls at HomeThe [facility] Patient InformationOriginal Date: 06/04/06 Revised date: 07/08/11Patient Safety: A Guide to Preventing Falls At Home Why is it important to prevent falls?Falls and the complications associated with falls are one of the most serious health problems facing the elderly. Preventing a fall is important to maintaining an active and independent lifestyle.Who is at risk for falls?Anyone can fall. No one wants to fall. Falls can occur in any age group; at any time and at any place. A fall can be a very serious and life threatening event for any person age 64 or older.Why do people fall?An unsafe environment may cause falls. An illness or physical condition may affect your strength and balance, making you more likely to fall. Some environmental factors that may cause falls are: Wet floors Loose carpets, tiles and throw rugs Equipment in halls or walkways Poor lighting Waxed floors Poor fitting or inadequate footwear Inappropriate use of assistive devices,canes, walkers, andwheelchairs Any other object at the floor level that a person can trip or sliponWhat illnesses or conditions make you unsteady on your feet or at risk for injury due to fall?Illness or conditions that may make you unsteady on your feet are: Poor vision/hearing Poor gait/mobility Muscle weakness Incontinence Syncope (dizziness) Low blood pressureLow blood sugar Seizures Poor nutrition/dehydration Medication reactions At risk for bleeding At riskfor fractures Advanced age (>80)Standard [place] Order Number - [id number] Patient InformationOriginal Date: 06/04/06 Revised date: 07/08/11Patient Safety: A Guide to Preventing Falls At Home What should I tell my doctor? See your doctor as prescribed. See your eye doctor yearly. Tell your doctor if you have fallen and describe the circumstancesofthefall(s). Tell your doctor if you use any walker aids, such as a cane or awalker. Tell your doctor about any vision problems and any other medicalproblems you may have. Tell you doctor if you have any side effects from yourmedications. Take good care of your feet. Let your doctor know if you are taking laxatives.How can I make home safe? When getting out of bed, sit on the side of the bed before standi ngup. Place grab bars securely mounted in bathrooms around toilets,bath tubs, and shower areas. Place hand rails on both sides of stairwells. Make sure your home is well lit. Use night-lights in the bedroom, bathroom, hallways andstairways. Remove throw rugs, or fasten them to the floorcarpet tape. Tack down carpet edges. Remove loose tiles. Remove electrical cords from pathways.Be sure to tell your doctor about all medications you are taking.Adapted from: Preventing Falls: Instructions for Patients and Families; [facility], April 2001 A Patient's Guide to Preventing Falls, [employer]Standard [place] Order Number - [id number] 10:54:41Lithotripsy, Care AfterLithotripsy, Care AfterThis sheet gives you information about how to care for yourself after your procedure. Your health care provider may also give you more specific instructions. If you have problems or questions, contact your health care provider.What can I expect after the procedure?After the procedure, it is common to have: Some blood in your urine. This should only last for a few days. Soreness in your back, sides, or upper abdomen for a few days. Blotches orbruises on your back where the pressure wave entered the skin. Pain, discomfort, or nausea when pieces (fragments) of the kidney stone move through the tube that carries urine from the kidney to thebladder (ureter). Stone fragments may pass soon after the procedure, but they may continue to pass for up to 48 weeks. If you have severe pain or nausea, contact your health care provider. This may be caused by a large stone that was not broken up, and this may mean that you need more treatment. Some pain or discomfort during urination. Some pain or discomfort in the lower abdomen or (in men) at the base of the penis.Follow these instructions at home:Medicines Take sigw-pho-[id number] and prescription medicines only as told by your health care provider. If you were prescribed an antibiotic medicine, take it as told by your health care provider. Do not stop taking the antibiotic evenif you start to feel better. Do not drive for 24 hours if you were given a medicine to help you relax (sedative). Do not drive or use heavy machinery while taking prescription pain medicine.Eating and drinking Drink enough water and fluids to keep your urine clear or pale yellow. This helps any remaining pieces of the stone to pass. It can also help prevent new stones from forming. Eat plenty of fresh fruits and vegetables. Follow instructions from your health care provider about eating and drinking restrictions. You may be instructed: To reduce how much salt (sodium) you eat or drink. Check ingredients and nutrition facts on packaged foods and beverages. To reduce how much meat you eat. Eat the recommended amount of calcium for your age and gender. Ask your health care provider how much calcium you should have.General instructions Get plenty of rest. Most people can resume normal activities 12 days after the procedure. Ask your health care provider what activities are safe for you. Your health care provider may direct you to lie in a certain position (postural drainage) and tap firmly (percuss) over your kidney area to help stone fragments pass. Follow instructions as told by your health care provider. If directed, strain all urine through the strainerthat was provided by your health care provider. Keep all fragments for your health care provider to see. Any stones that are found may be sent to a medical lab for examination. The stone may be as small as a grain of salt. Keep all follow-up visits as told by your health care provider. This is important.Contact a health care provider if: You have pain that is severe or does not get better with medicine. You have nausea that is severe or does not go away. You have blood in your urine longer than your health care provider told you to expect. You have more blood in your urine. Youhave pain during urination that does not go away. You urinate more frequently than usual and thisdoes not go away. You develop a rash or any other possible signs of an allergic reaction.Get helpright away if: You have severe pain in your back, sides, or upper abdomen. You have severe pain while urinating. Your urine is very dark red. You have blood in your stool (feces). You cannot pass any urine at all. You feel a strong urge to urinate after emptying your bladder. You have a fever or chills. You develop shortness of breath, difficulty breathing, or chest pain. You have severe nausea that leads to persistent vomiting. You faint.Summary After this procedure, it is common to have some pain, discomfort, or nausea when pieces (fragments) of the kidney stone move through the tube that carries urine from the kidney to the bladder (ureter). If this pain or nausea is severe, however, you should contact your health care provider. Most people can resume normalactivities 12 days after the procedure. Ask your health care provider what activities are safe for you. Drink enough water and fluids to keep your urine clear or pale yellow. This helps any remaining pieces of the stone to pass, and it can help prevent new stones from forming. If directed, strain your urine and keep all fragments for your health care provider to see. Fragments or stones may be as small as a grain of salt. Get help right away if you have severe pain in your back, sides, or upper abdomen or have severe pain while urinating.This information is not intended to replace advice given to you by your health care provider. Make sure you discuss any questions you have with your health care provider.Document Released: 11/21/2008 Document Revised: 04/13/2019 Document Reviewed: 09/23/2017[employer] Interactive Patient Education ? 2019 O Entregador.06/27/2020 10:54:41Post-Operavtive Discharge Instructions ([facility]) (CUSTOM)Post-Operative Discharge InstructionsWHAT TO EXPECT AFTER ANESTHESIAAfter the procedure, it is typical to experience: Nausea and vomiting. Sore throat. Sleepiness. Dizziness. Weakness. Pain at the IV site. Trouble concentrating.HOME CARE INSTRUCTIONSFor the first 24 hours after anesthesia: Have a responsible person with you. Do not care for small children independently. Do not drive a car. Do not operate hazardous machinery. Do not drink alcohol. Do not take medicine that has not been prescribed by your health care provider. Do not sign important papers or make important decisions.EATING AND DRINKING Follow any instructions from your health care provider about eating or drinking restrictions. When you feel hungry, start by eating small amounts of foods that are soft and easy to digest (bland). Gradually return to your regular diet. Drink enough fluid to keep your urine a pale yellow. It is not recommended that you take pain medicine on an empty stomach. Nausea and vomiting are common after receiving anesthesia. If you vomit, rehydrate by drinking water, juice or clear broth.SEEK MEDICAL CARE IF: You have nausea and vomiting that continue for more than one day after anesthesia. You develop a rash. You have redness around your IV site that gets worse. You have a temperature greater that 101 degrees orally or 102 degrees rectally.SEEK IMMEDIATE MEDICAL CARE IF: You have difficulty breathing. You have chest pain. You are unable to pass urine. You have blood in your urineor stool, or you vomit blood. You have any allergic reactions.BLEEDING RISK AFTER SURGERYIt is normal to have some bleeding after surgery, but if you notice bleeding coming through your bandages:Have someone hold firm pressure on the surgical site and reinforce it with additional dressing. If you are bleeding from an extremity, elevate the extremity above the level of your heart.WHEN SHOULDYOU CALL FOR HELP? If your incision is still bleeding after 15 minutes, call your surgeon immediat angelito. If your dressing is fully saturated in under an hour, or you are unable to stop the bleedingwith firm pressure, call your surgeon immediately. If you cant get in touch with your doctor, go to Urgent Care or to the Emergency Department at the nearest hospital.Call 911 anytime you think you may need emergency care.Make sure you follow your doctors instructions regarding dressing changes, bathing and surgical incision site care. Make sure you discuss any questions you have with your health care provider.PREVENTING SURGICAL SITE INFECTIONSWHAT IS A SURGICAL SITE INFECTION?A surgical site infection is an infection that occurs after surgery in the part of the body where the surgery took place. Most patients who have surgery do not develop an infection. However, infections develop in about 1 to 3 out of every 100 patients who have surgery.Some of the common symptoms of a surgical site infection are: Redness and pain around the area where you had surgery Drainage of cloudy fluid from your surgical wound Fever Swelling Itching BurningWHAT CAN YOU DO TO HELP PREVENT A SURGICAL SITE INFECTION?Hand HygieneWashing your hands or using an alcohol gel is the number one way to prevent infection.Always wash your hands or use an alcohol hand rub before you touch the surgical site. Make sure anyone else does the same before touching the surgical site.Caring for your surgical siteCare of your surgical site continues after you go home. There are some simple things that youcan do to help prevent infection at your surgical site. Anyone who touches the surgical site, including yourself and healthcare providers, should wash hands, or use an alcohol hand rub, before and after touching the surgical site Cleanse the wound according to your doctors instructions. Donot remove the dressing unless your doctor has instructed you to do so. Avoid tub baths, soaking in water, or swimming until your surgeon tells you it is OK. Do not allow your pet to sit or lie on the surgical site. Make sure you are eating nutritiously. Stop tobacco use. Place clean linen where you will be sleeping. Keep the wound clean and dry.Report any signs of infection to your surgeon immediately.Pain Relief Preoperatively and PostoperativelyIf you have questions, problems, or concerns about the pain that you may feel after surgery, let your health care provider know.?Patients have the right to assessment and management of pain. Severe pain after surgeryand the fear or anxiety associated with that painmay cause extreme discomfort that: Prevents sleep. Decreases the ability to breathe deeply and to cough. This can result in pneumonia or other upper airway infections. Causes the heart to beat more quickly and the blood pressure to be higher. Increases the risk for constipation and bloating. Decreases the ability of wounds to heal. May result in depression, increased anxiety, and feelings of helplessness.Relieving pain before surgery (preoperatively) is also important because it lessens pain that you have after surgery (postoperatively). Patientswho receive pain relief both before and after surgery experience greater pain relief than those who r eceive pain relief only after surgery. Let your health care provider know if you are having uncontrolled pain.?This is very important.?Pain after surgery is more difficult to manage if it is severe, soreceiving prompt and adequate treatment of acute pain is necessary. If you become constipated after taking pain medicine, drink more liquids if you can. Your health care provider may have you take a mild laxative.PAIN CONTROL METHODSYour health care providers follow policies and procedures about the management of your pain.?These guidelines should be explained to you before surgery.?Plans for pain control after surgery must be decided upon by you and your health care provider and put into use with your full understanding and agreement.?Do not be afraid to ask questions about the care that you are receiving.Your health care providers will attempt to control your pain in various ways, and these methods may be used together (multimodal analgesia). Using this approach has many benefits for you, including being able to eat and move around.As-Needed Pain Control You may be given pain medicine through an IV tube or as a pill or liquid that you can swallow. Let your health care provider know when you are having pain, and he or she will give you the pain medicine that is ordered for you.Medicine That Numbs the Area (Local Anesthetic)You may be given pain medicine: As an injection near the area of the pain (local infiltration). As an injection near the nerve that controls the sensation to a specific part of your body (peripheral nerve block). In your spine to block pain (spinal block).Opioids Moderate to moderately severe acute pain after surgery may respond to opioids.?Opioids are narcotic pain medicine. Opioids are often combined with non-narcotic medicines to improve pain relief, lower the risk of side effects, and reduce the chance of addiction. If you follow your health careprovider's directions about taking opioids and you do not have a history of substance abuse, your risk of becoming addicted is very small.?To prevent addiction, opioids are given for short periods of time in careful doses.Other Methods of Pain Control Steroids. Physical therapy. Heat and coldtherapy. Compression, such as wrapping an elastic bandage around the area of the pain. Massage.This information is not intended to replace advice given to you by your health care provider. Make sure you discuss any questions you have with your health care provider.[employer] Interactive Patient Education ?2016 O Entregador.06/27/2020 10:54:41Dr. Tyler's Urology Discharge Instruction Sheet ([facility]) (Custom)Dr. yTler's Urology Instruction SheetKaiser Oakland Medical Center? You may feel tired or slightly weak following the procedure. It is recommended that you rest at home for the remainder of today and tonight and limit your physical activity for the next 24 hours.? No strenuous activity should be started without your permission.? You may have some bleeding, report to yourdoctor and excessive bleeding or passing of clotted blood.? You may have some burning or urination. R eport to your doctor if you are unable to urinate.? A child which has trouble urinating may be placed in a warm tub of water. This may resolve the problem. If the child is still unable to urinate, contact your doctor.? Drink plenty of liquids at home.? If you should have any elevation of temperature of 101 degrees or higher, please contact your doctor.? You may have some pain following the procedure.Report to your doctor any severe pain not relieved by the medication prescribed.? Follow all label instructions for medications that have been prescribed for you.? If there is a dressing over an incision, please keep it clean and dry.? Do not change any dressing for 24 hours or as instructed by your doctor.? Please keep all appointments that your doctor has arranged for you.? If you have an incision,report any swelling, increased redness, inflammation or pus to your doctor.? Should any questions arise or complications develop following the procedure, please contact your doctor.[facility]06/15/2020 11:29:08With: Rao TylerAddress: [facility] [address] [place] [address]- Business (1)When: 07/06/2020With: Unable to reach MD, call [facility]([phone])Address: UnknownWhen: UnknownWith: Questions - call MD during office hoursAddress: UnknownWhen: UnknownWith: Problems - call MD during office hoursAddress: UnknownWhen: Unknown NameDatesDetailsInstructions not documented1. Post-mastectomy pain 2. History of malignant neoplasm of breast 3. Long-term drug therapy 4. Lymphedema Discussion Note: None recorded. Patient educational handouts: No information available.1. Post-mastectomy pain 2. History of malignant neoplasm of breast 3. Long-term drug therapy 4. Lymphedema Discussion Note: None recorded. Patient educational handouts: No information available.
== END 2020-09-28 10:00 | disposition home or self-care (01) ==
LOC: END 07:49
PROVIDERS: ATTEND Internal Medicine Gastroenterology
DX: K62.1 Rectal polyp (principal); K64.8 Other hemorrhoids; Z03.818 Encounter for observation for suspected exposure to other biological agents ruled out; Z85.3 Personal history of malignant neoplasm of breast; Z90.10 Acquired absence of unspecified breast and nipple; Z79.82 Long term (current) use of aspirin; Z79.899 Other long term (current) drug therapy
CPT/HCPCS: 45380; 87635; 88305 ×2; 00812; J2704; C9803; 812